=== PATIENT | male | born 1960 | race Caucasian/White ===

== ENCOUNTER 2020-12-08 19:35 | Emergency (ER) | payer MEDICAID ==
[~2020-12-08] VITALS: Ht 172.7 cm; Wt 84.9 kg
[2020-12-08 19:49] VITALS: BP 128/84
--- NOTE | 2020-12-08 19:54 | NUR ---
PT AMBULATED WITH STEADY GAIT TO BED 9, PT PROVIDED UA SAMPLE.
--- NOTE | 2020-12-08 20:11 | NUR ---
PT HAS BEEN HAVING SWELLING TO RIGHT TESTICLE X 1 DAY. MILD DISCOMFORT TO AREA, DENIES ANY PAIN WITH URINATION, AFEBRILE. PT PLACED IN GOWN. BED IN LOWEST POSITION AND SIDERAIL UP X 1. NKA HX - DM, DEPRESSION
[2020-12-08 20:37] LABS: APPEARANCE,URINE CLEAR (CLEAR); BILIRUBIN,URINE NEGATIVE (NEGATIVE); BLOOD, URINE NEGATIVE (NEGATIVE); COLOR,URINE YELLOW (YELLOW); LEUKOCYTE ESTERASE ,URINE NEGATIVE (NEGATIVE); NITRITE, URINE NEGATIVE (NEGATIVE); PH,URINE 5.5 (5.0-9.0); UGLUCOSE TRACE (NEGATIVE)
--- NOTE | 2020-12-08 21:15 | NUR ---
ULTRASOUND AT BEDSIDE
[2020-12-08] MEDS: KETOROLAC 30 MG/ML VIAL IM ONE (21:41)
[2020-12-08] MEDS ORDERED: KETOROLAC 30 MG/ML VIAL ONE (21:42)
[2020-12-08] MEDS ORDERED: LEVO250T71 PO (22:17)
[2020-12-08] MEDS ORDERED: NAPR-54 PO (22:17)
[2020-12-08 22:40] VITALS: BP 128/84
--- NOTE | 2020-12-08 22:41 | NUR ---
Patient discharged with v/s stable. Written and verbal after care instructions given and explained. Patient alert, oriented and verbalized understanding of instructions. Ambulatory with steady gait. All questions addressed prior to discharge. ID band removed. Patient advised to follow up with PMD. Rx of LEVOFLOXACIN AND NAPROXEN given. Patient educated on indication of medication including possible reaction and side effects. Opportunity to ask questions provided and answered.
== END 2020-12-08 22:40 | disposition home or self-care (01) ==
LOC: MED 19:35
DX: N45.1 Epididymitis (principal); N43.3 Hydrocele, unspecified; E11.9 Type 2 diabetes mellitus without complications; I10 Essential (primary) hypertension
CPT/HCPCS: 36415; 76870; 81003; 87491; 96372; 99284; J1885